=== PATIENT | female | born 1970 | race African-American/Black ===

== ENCOUNTER 2016-07-31 21:49 | Emergency (ER) | payer SELFPAY ==
[~2016-07-31] VITALS: Ht 170.2 cm; Wt 71.0 kg
[2016-07-31] MEDS ORDERED: MORPHINE SULFATE 4 MG/ML CPJ (NOT FOR IM USE) IV STA (23:28)
[2016-07-31] MEDS ORDERED: ONDANSETRON HCL 4MG/2ML VIAL IV STA (23:28)
[2016-07-31] MEDS ORDERED: ASPIRIN 81MG TABLET PO ONE (23:30)
[2016-07-31] MEDS ORDERED: LABETALOL HCL 20MG/4ML CARPUJECT IV ONE (23:30)
[2016-07-31 23:41] LABS: EOSINOPHILS % 0.9 % (0.0-5.0); HEMATOCRIT. 37.4 % (36.0-48.0); HEMOGLOBIN. 12.6 g/dL (12.0-16.0); LYMPHOCYTES % 33.4 % (20.0-50.0); MEAN CORPUSCULAR HEMOGLOBIN 31.3 pg (28.0-32.0); MEAN PLATELET VOLUME 8.5 fl (7.4-10.4); MONOCYTES % 6.4 % (2.0-8.0); NEUTROPHILS % 58.3 % (40.0-76.0); PLATELET 220 x1000/uL (130-400); RED BLOOD CELL COUNT 4.02 mill/uL (4.2-5.4)
[2016-07-31] MEDS ORDERED: LABETALOL 5MG/ML SYR 20 MG/4 ML SYRINGE IV NR (23:44)
[2016-07-31 23:58] LABS: CARBON DIOXIDE 27 mEq/L (21-32); CHLORIDE 105 mEq/L (98-107); ETHANOL BLOOD < 10 mg/dL; TROPONIN I < 0.02 ng/mL (0.00-0.04)
[2016-08-01 00:04] LABS: HCG SCREEN NEGATIVE
[2016-08-01 01:04] VITALS: BP 173/81
== END 2016-08-01 01:17 | disposition home or self-care (01) ==
LOC: ER 08-01 00:12
DX: I10 Essential (primary) hypertension (principal); R07.89 Other chest pain; R51 Headache
CPT/HCPCS: 36415; 71010; 80053; 84484; 84703; 85025; 93005; 96374; 96375; 99291; G0482; J2270; J2405; J3490; Z7610